=== PATIENT | male | born 1955 | race Caucasian/White ===

== ENCOUNTER 2017-10-03 07:13 | Day surgery (SDC) | payer OTHER ==
[~2017-10-03 07:13] MED LIST: RINGER'S SOLUTION,LACTATED 1,000 ML IV PRN
[2017-10-03] MEDS ORDERED: RINGER'S SOLUTION,LACTATED 1,000 ML IV ONE (07:45)
--- NOTE | 2017-10-03 09:17 | OR ---
Operative Report - Dictated Report Narrative: Date: 10/03/2017 Preop dx: Screen for colon cancer Postop dx: normal colon Procedure: Total colonoscopy Staff surgeon: Kendall oBne MD Anesthesia: MAC per MANAGER PROJECT EBL: none Description: After informed consent and appropriate sedation the patient was placed in the left lateral decubitus position. A flexible fiberoptic video colonoscope was introduced and advanced under direct vision without difficulty to the cecum. The usual landmarks were identified. Preparation was excellent and excellent views were obtained. The findings were of a normal cecum, ascending colon, hepatic flexure, transverse colon, splenic flexure, descending and sigmoid colon, and rectum. The mucosal color, vasculature and texture were normal throughout. No suspicious masses were seen. The patient tolerated the procedure well without apparent complications and was discharged from the endoscopy suite in stable condition.
[2017-10-03 09:58] VITALS: BP 153/92
== END 2017-10-03 07:14 | disposition home or self-care (01) ==
LOC: AMB 07:13
PROVIDERS: ATTEND Specialist
PROC: 0DJD8ZZ Inspection of Lower Intestinal Tract, Via Natural or Artificial Opening Endoscopic (ICD-10-PCS; principal; 2017-10-03 08:00)
DX: Z12.11 Encounter for screening for malignant neoplasm of colon (principal); E11.9 Type 2 diabetes mellitus without complications; E78.5 Hyperlipidemia, unspecified; I10 Essential (primary) hypertension; M19.90 Unspecified osteoarthritis, unspecified site; Z87.891 Personal history of nicotine dependence; Z68.36 Body mass index [BMI] 36.0-36.9, adult